=== PATIENT | female | born 1995 | race African-American/Black ===

== ENCOUNTER 2025-08-01 10:39 | Emergency (ER) | payer MEDICAID, SELFPAY ==
--- OUTSIDE RECORDS SUMMARY | 2010-02-20 08:12 | XMS_ITS | Continuity of Care Document ---
Author Organization [facility] Address [address] [place] [address] Phone Care Team Providers Care Shank Stitcher Name Role Phone Unavailable Unavailable Unavailable Unavailable Unavailable Unavailable Allergies, Adverse Reactions, Alerts Substance Reaction Status Criticality No Known allergies Procedures Procedure Date HOME VST EST PT LOW TO MOD SEVERITY Advance Directives Directive Yes / No Effective Date File Name Resuscitation Not Answered N/A N/A Life Support Not Answered N/A N/A Intubation Not Answered N/A N/A Antibiotics Not Answered N/A N/A IV Fluid Support Not Answered N/A N/A Tube Feed Not Answered N/A N/A Other Directive N/A N/A WARNING:The information contained in this section is historical and is provided for information only and does not constitute a legal document or any assurance that the information is still accurate. Please verify the information with the macdonald of the legal document before using it for clinical purposes. Encounters Encounter Description Practice Location Reason(s) For Visit Diagnoses Date Provider Providers Copied on Encounter [facility] , [address], [place], [place], [address], tel:[phone] [facility] Other specified counseling No Information HOME VST EST PT LOW TO MOD SEVERITY [facility] , [address], [place], [place], [address], tel:[phone] [facility] Other specified counseling No Information Family History Family Member Type Diagnosis Age At Onset No Information Payers Payer name Insurance type Covered green party ID Authoriza tion(s) No Information Social History Type Description Quantity Date Captured Comments Alcohol Use Details Unknown Caffeine Use Details Unknown Tobacco Use Status No Information Smoking Status No Information Sex Female Vital Signs Date / Time: Height Weight BMI Pulse Rate Blood Pressure Temperature Respiratory Rate Body Surface Area Head Circumference Head Circ. Percentile Wt./Ethan. Percentile BMI percentile Pulse Ox Inhaled Ox 1:21 PM 60.00 in 98.00 lbs 19.1 4 kg/m eter (2) 83 /min 100/70 mm[Hg] 97.50 F 18 /min 50 Chief Complaint And Reason For Visit No Information Reason For Referral Reason For Referral No Information History Of Present Illness Encounter Date Complaint History Of Prese nt Illness No Information Functional Status Date Functional Assessmen t No Information Instructions Date Instruction Additional Infor mation No Information Assessments Type Assessment Date No Information Patient Care Teams Name Effective Dates (start - stop) Status Members No Information
--- OUTSIDE RECORDS SUMMARY | 2010-02-20 08:12 | XMS_ITS | Continuity of Care Document ---
Author Organization [facility] Address [address] [place] [address] Phone Care Team Providers Care Manager Child Name Role Phone Unavailable Unavailable Unavailable Unavailable [...] Diagnoses Date Provider Providers Copied on Encounter [facility] , [address], [place], [place], [address], tel:[phone] [facility] Other specified counseling No Information HOME VST EST PT LOW TO MOD SEVERITY [facility] , [address], [place], [place], [address], tel:[phone] [facility] Other specified counseling No Information Family History Family Member Type Diagnosis Age At Onset No Information Payers Payer name Insurance type Covered constitution party ID Authoriza tion(s) No Information Social [...]
--- OUTSIDE RECORDS SUMMARY | 2013-05-25 05:41 | XMS_ITS | Continuity of Care Document ---
Author Organization [facility] Address [address] [place] [address] Phone Care Team Providers Care Conference Center Manager Name Role Phone Jerry Alexandre MD Unavailable Unavailable Medications Medication Instructions Dosage Effective Dates (start - stop) Status Comments AZITHROMYCIN 250 MG TABLET 0 DIRECTE - Active Day 1: 2tabs, day 2-5: 1tab po qd NASONEX 50MCG NASAL SPRAY 2 QD - Active Advance Directives Directive Yes / No Effective Date File Name No Information Encounters Encounter Description Practice Location Reason(s) For Visit Diagnoses Date Provider Providers Copied on Encounter [facility], [address], [place], [place], [address], tel:[phone] [facility] No Information 3 Baldomero Edwards. [address] [place] [address], [id number], . tel:[phone] [facility], [address], [place], [place], [address], tel:[phone] Conversion Department No Information 1 Conversion Doctor. [address] [place] [address], [address], . [facility], [address], [place], [place], [address], tel:[phone] [facility] ACUTE BRONCHITISATTN DEFICIT W HYPERACT 1 1 Baldomero Edwards. [address], [id number], . tel:[phone] [facility], [address], [place], [place], [address], [place] tel:[phone] [facility] ALLERGIC RHINITIS NOS 0200 2 Chet Bettencourt. [address] [facility], [address], [place], [place], [address], [place]. tel:[phone] Family History Family Member Type Diagnosis Age At Onset No Information Immunizations Vaccine Date Status Comments HPV (bivalent) administered Source: New I mmunization Record meningococcal administered Source: New Im munization Record varicella administered Source: New Imm unization Record hep A (ped/adol, 2 dose) administered Goldie rce: New Immunization Record hep A (ped/adol, 2 dose) administered Goldie rce: New Immunization Record Tdap administered Source: New Imm unization Record MMR administered Source: New Imm unization Record DTaP administered Source: New Imm unization Record varicella administered Source: New Imm unization Record MMR administered Source: New Imm unization Record HIB administered Source: New Imm unization Record polio, inactivated (IPV) administered Goldie rce: New Immunization Record DTaP administered Source: New Imm unization Record hep B (ped/adol, 3 dose) administered Goldie rce: New Immunization Record HIB administered Source: New Imm unization Record polio, inactivated (IPV) administered Goldie rce: New Immunization Record DTaP administered Source: New Imm unization Record HIB administered Source: New Imm unization Record polio, inactivated (IPV) administered Goldie rce: New Immunization Record DTaP administered Source: New Imm unization Record hep B (ped/adol, 3 dose) administered Goldie rce: New Immunization Record HIB administered Source: New Imm unization Record polio, inactivated (IPV) administered Goldie rce: New Immunization Record DTaP administered Source: New Imm unization Record hep B (ped/adol, 3 dose) administered Goldie rce: New Immunization Record Payers Payer name Insurance type Covered democrat ID Authoriza tion(s) No Information Social History Type Description Quantity Date Captured Comments Sex Female Smoking Status No Information Chief Complaint And Reason For Visit No [...]
--- OUTSIDE RECORDS SUMMARY | 2013-05-25 05:41 | XMS_ITS | Continuity of Care Document ---
Author Organization [facility] Address [address] [place] [address] Phone Care Team Providers Care Planning Coordinator Name Role Phone Jerry Alexandre MD Unavailable [...] Diagnoses Date Provider Providers Copied on Encounter [facility], [address], [place], [place], [address], tel:[phone] [facility] No Information 3 Baldomero Edwards. [address] [place] [address], [id number], . tel:[phone] [facility], [address], [place], [place], [address], tel:[phone] Conversion Department No Information 1 Conversion Doctor. [address] [place] [address], [address], . [facility], [address], [place], [place], [address], tel:[phone] [facility] ACUTE BRONCHITISATTN DEFICIT W HYPERACT 1 1 Baldomero Edwards. [address], [id number], . tel:[phone] [facility], [address], [place], [place], [address], [place] tel:[phone] [facility] ALLERGIC RHINITIS NOS 0[address] 2 Chet Bettencourt. [address] [facility], [address], [place], [place], [address], [place]. tel:[phone] Family History Family Member Type Diagnosis Age [...]
--- NOTE | ~2025-08-01 | XR_ITS ---
X-rays right fifth toe, x-rays left fifth toe Indication: Injury, pain Comparison: None Technique: 2 views right fifth toe, 2 views left fifth toe Findings/Impression: Right fifth toe: 1. No fracture identified. Left fifth toe: 1. No fracture identified. Reviewed, dictated and finalized at location R.
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
[2025-08-01 10:39] VITALS: BP 133/93; PULSE 80; RESP 16; TEMP 36.5; O2SAT 100
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
--- NOTE | 2025-08-01 11:05 | PC.NURSE ---
Pt to radiology with senior controls technician.
[2025-08-01 11:22] LABS: Pregnancy On Board Control Positive
--- NOTE | 2025-08-01 11:26 | PC.NURSE ---
Pt back in room from radiology.
[2025-08-01 12:06] VITALS: BP 111/67; PULSE 72; RESP 16; O2SAT 98
== END 2025-08-01 12:08 | disposition home or self-care (01) ==
PROVIDERS: Emergency Provider Emergency Medicine
DX: S93.505A Unspecified sprain of left lesser toe(s), initial encounter (principal); S93.504A Unspecified sprain of right lesser toe(s), initial encounter; S09.90XA Unspecified injury of head, initial encounter; M54.50 Low back pain, unspecified; W20.8XXA Other cause of strike by thrown, projected or falling object, initial encounter
CPT/HCPCS: 70450; 72125; 73660; 81025; 99284

== ENCOUNTER 2025-10-03 05:13 | Emergency (ER) | payer BC, SELFPAY ==
[2025-10-03 05:14] VITALS: BP 121/99; PULSE 98; RESP 20; TEMP 36.1; O2SAT 100
--- NOTE | 2025-10-03 05:22 | PC.NURSE ---
PT AMBULATORY TO BATHROOM AT THIS TIME WITH STEADY GAIT. URINE SPECIMEN PROVIDED AND SENT TO LAB.
[2025-10-03 05:35] LABS: Add Urine Microscopic? YES; Appearance Urine Clear (Clear); Glucose Urine UA Negative (Negative); Leukocyte Esterase Ur 1+ (Negative); Nitrate Urine Negative (Negative); Specific Grav Ur 1.010 (1.010-1.020)
[2025-10-03 05:43] LABS: Pregnancy On Board Control Positive
--- NOTE | 2025-10-03 05:53 | ED_ITS ---
HPI - Female Genitourinary General Chief complaint: Urogenital-Female Stated complaint: possible uti Source: patient Mode of arrival: ambulatory History of Present Illness HPI Narrative: 30-year-old otherwise healthy here with a complaints of painful sexual intercourse and at burning with urination .Denies any bleeding or discharge , Onset (ago): day(s) (1) Severity: moderate Female Urogenital Radiation: Non-Radiating Quality of pain: burning Vaginal discharge: none Vaginal bleeding: none Urinary symptoms: Dysuria Related Data Allergies Allergy/AdvReac Type Severity Reaction Status Date / Time banana Allergy Hives Verified 10/03/25 05:23 Latex, Natural Rubber Allergy Rash Verified 10/03/25 05:23 tomato Allergy Hives Verified 10/03/25 05:23 Review of Systems Review of Systems: All systems reviewed & are unremarkable except as noted in HPI and below Constitutional: Constitutional: Reports no additional constitutional complaints Eyes: Eyes: Reports no additional eye complaints ENT: Reports system reviewed and no additional complaints, except as documented Cardiovascular: Cardiovascular: Reports no additional cardiovascular complaints Respiratory: Respiratory: Reports no additional respiratory complaints Gastrointestinal: Gastrointestinal: Reports no additional gastrointestinal complaints Genitourinary: Genitourinary: Reports as per HPI Musculoskeletal: Musculoskeletal: Reports no additional musculoskeletal complaints Exam Narrative: GENERAL: Well-appearing, well-nourished, and in no acute distress. HEAD: Normocephalic, atraumatic. EYES: PERRLA and EOMI. ENT: Nares clear, NECK: Supple. CHEST: Clear to auscultation. No respiratory distress. HEART: Regular rate and rhythm. No murmur heard. Normal peripheral pulses. ABDOMEN: Soft, nontender, nondistended, normal active bowel sounds. EXTREMITIES: Normal range of motion. No edema. SKIN: Warm, dry, no rash. NEURO: No focal deficits. Alert and oriented x3. PSYCH: Normal mood and affect. Course Course Emergency Course: Notified patient about her urinalysis. Advised to follow up with PMD and await for STI results Vital Signs Vital signs: Vital Signs Temperature 36.1 C L 10/03/25 05:14 Pulse Rate 98 10/03/25 05:14 Respiratory Rate 20 10/03/25 05:14 Blood Pressure 121/99 H 10/03/25 05:14 Pulse Oximetry 100 10/03/25 05:14 Oxygen Delivery Room Air 10/03/25 05:14 Temperature 36.1 C L 10/03/25 05:14 Pulse Rate 98 10/03/25 05:14 Respiratory Rate 20 10/03/25 05:14 Blood Pressure 121/99 H 10/03/25 05:14 Pulse Oximetry 100 10/03/25 05:14 Oxygen Delivery Room Air 10/03/25 05:14 MDM - Female Genitourinary Lab Data Labs: Lab Results 10/03/25 10/03/25 Range/Units 05:22 05:45 Urine Color Light yellow (Yellow) Urine Appearance Clear (Clear) Urine pH 6.5 (5.0-8.0) Ur Specific [place] 1.010 (1.010-1.020) Urine Protein Negative (Negative) Urine Glucose (UA) Negative (Negative) Urine Ketones Negative (Negative) Ur Blood (Man) Trace-intact H (Negative) Urine Nitrate Negative (Negative) Urine Bilirubin Negative (Negative) Urine Urobilinogen 1.0 (0.2-1.0) mg/dL Ur Leukocyte Esterase 1+ H (Negative) Urine RBC 0-2 (0-2) /hpf Urine WBC 0-3 (0-3) /hpf Ur Squamous Epith Cells Occasional (Few) /hpf Urine Bacteria 1+ H (None) /hpf Urine Test Negative C. trachomatis (PCR) Pending N. gonorrhoeae (PCR) Pending T. vaginalis Amp RNA Pending Discharge Plan Discharge Clinical Impression: Dyspareunia Patient Disposition: Home Condition: Stable Instructions: Dyspareunia in Women (DC) Additional Instructions: follow with your OB Patient Language: Kazakh Prescriptions: No Action ibuprofen 600 mg tablet 600 mg PO TID PRN (Reason: pain) Qty: 30 0RF Follow-up/Referrals: UNKNOWN,DOCTOR [Primary Care Provider] Time of Disposition: 05:54
[2025-10-03 08:23] LABS: Trichomonas Vag PCR NOT DETECTED (NOT DETECTE)
== END 2025-10-03 06:02 | disposition home or self-care (01) ==
PROVIDERS: Emergency Provider Family Medicine
DX: N94.10 Unspecified dyspareunia (principal); Z11.3 Encounter for screening for infections with a predominantly sexual mode of transmission
CPT/HCPCS: 81001; 81025; 87491; 87591; 87661; 99284